=== PATIENT | male | born 1980 | race Caucasian/White ===

== ENCOUNTER 2023-02-07 18:56 | Emergency (ER) | payer BC, SELFPAY ==
[2023-02-07] MEDS ORDERED: Ondansetron ODT 8 MG TAB ONE (20:23)
[2023-02-07 20:29] LABS: SARS-CoV-2 NAA Rapid Test Not Detected (NotDetected)
== END 2023-02-07 21:29 | disposition home or self-care (01) ==
LOC: ERS 18:56
DX: J10.1 Influenza due to other identified influenza virus with other respiratory manifestations (principal)
CPT/HCPCS: 71045; Q0162